=== PATIENT | male | born 1980 | race Caucasian/White ===

== ENCOUNTER 2018-09-19 13:30 | Emergency (ER) | payer SELFPAY ==
[~2018-09-19] VITALS: Ht 165.1 cm; Wt 79.4 kg
[2018-09-19 13:34] VITALS: BP 164/113
[2018-09-19] MEDS: KETOROLAC 60 MG/2 ML VIAL IM ONE (14:34)
[2018-09-19 14:41] VITALS: BP 158/89
== END 2018-09-19 14:41 | disposition home or self-care (01) ==
LOC: MED 13:30
DX: S63.92XA Sprain of unspecified part of left wrist and hand, initial encounter (principal); V89.2XXA Person injured in unspecified motor-vehicle accident, traffic, initial encounter; Y93.89 Activity, other specified; Y92.89 Other specified places as the place of occurrence of the external cause; Y99.8 Other external cause status
CPT/HCPCS: 73110; 73130; 96372; 99284; J1885; Q0092